=== PATIENT | female | born 1945 | race Hispanic/Latino ===

== ENCOUNTER → 2017-06-01 | Outpatient (CLI) | payer MEDICARE ==
[~2017-06-01] MED LIST: ACETAMINOPHEN-1 EAC3; BROMFED DM COU118 ML; CIPROFLOXACIN
--- NOTE | 2017-06-03 16:00 | Diagnostic Imaging Report ---
#[id number] - MGSCRBIL #BILATERAL DIGITAL SCREENING MAMMOGRAM WITH CAD: 06/01/2017 CLINICAL: Routine screening. Comparison is made to exams dated: 05/21/2016 mammogram and 05/19/2015 mammogram - [facility]. Current study contains 4 films. The tissue of both breasts is heterogeneously dense. This may lower the sensitivity of mammography. Current study was also evaluated with a Computer Aided Detection (CAD) system. There are benign calcifications in both breasts. No significant masses, calcifications, or other findings are seen in either breast. There has been no significant interval change. IMPRESSION: BENIGN There is no mammographic evidence of malignancy. A 1 year screening mammogram is recommended. The patient will be notified by letter of the results. Taras boyle/bernice:06/03/2017 13:10:19 [employer]: Shima ALDANA(R)(M), [facility] letter sent: Compared to Prior B9 Mammogram BI-RADS: 2 Benign
== END ==
LOC: MAMMO 13:07
PROVIDERS: ATTEND Internal Medicine
DX: Z12.31 Encounter for screening mammogram for malignant neoplasm of breast (principal)
CPT/HCPCS: 77067

== ENCOUNTER → 2017-10-21 | Outpatient (CLI) | payer MEDICARE | LOC: RAD 07:59 | PROVIDERS: ATTEND Internal Medicine | DX: M47.816 Spondylosis without myelopathy or radiculopathy, lumbar region (principal) | CPT/HCPCS: 72110; 72220 ==

== ENCOUNTER → 2017-11-29 | Outpatient (CLI) | payer MEDICARE ==
--- NOTE | 2017-11-30 07:32 | Diagnostic Imaging Report ---
ADDENDUM #1 Grammatical correction to the impression: 1. Degenerative changes from L1-L2 through L5-S1 with mild canal stenosis and probable impingement of the descending left L4 nerve root by a left subarticular disc extrusion with inferior migration at L3-L4. 2. Moderate bilateral neural foraminal narrowing at L3-L4 and moderate left foraminal narrowing at L5-S1. Signed by: Dr. Nelsy Flores M.D. on 11/30/2017 12:53 PM ORIGINAL REPORT Examination: MRI SPINE LUMBAR WITHOUT CONTRAST History: Low back pain with radiation to the left leg. Left lumbar radiculopathy. Comparison studies: Lumbar spine x-ray performed October 21, 2017. Technique: Sagittal, coronal and axial T2 , sagittal T1 and STIR; axial spin density oblique. Findings: Number of lumbar vertebral bodies: Five. Alignment: Normal lordosis. No scoliosis. Soft tissues: No T2 hyperintense inflammatory changes. Posterior paraspinal soft tissues and muscles: Mild fatty atrophy at L5-S1. Lower thoracic cord: Normal in signal and morphology. The tip of the conus is at T12-L1. Cauda equina: No masses. No arachnoiditis. Vertebrae: No fractures, infection or neoplasm. Degenerative changes: L1-L2: Mild diffuse disc bulge results in mild left neural foraminal narrowing. No right foraminal or canal stenosis. L2-L3: Asymmetric to right disc bulge and mild bilateral facet arthropathy result in mild right neural foraminal narrowing. No left foraminal or canal stenosis. L3-L4: Left subarticular disc extrusion with inferior migration to the superior endplate of L4 results in mild canal stenosis and probable impingement of the descending left L4 nerve root. Mild diffuse disc bulge results in moderate bilateral neural foraminal narrowing. L4-L5: Small central disc protrusion with associated annular fissure. Mild diffuse bulge and mild bilateral facet arthropathy result in mild right neural foraminal narrowing. No left foraminal or canal stenosis. L5-S1: Mild diffuse disc bulge and mild bilateral facet arthropathy result in mild right and moderate left neural foraminal narrowing. No canal stenosis. Moderate bilateral facet joint effusions without periarticular edema. IMPRESSION: 1. Degenerative changes melena 2 through L5-S1 with mild canal stenosis and probable impingement of the descending left L4 nerve root by a left subarticular disc extrusion with inferior migration at L3-L4. 2. Moderate bilateral neural foraminal narrowing at L3-L4 and moderate left foraminal narrowing at L5-S1. Signed by: Dr. Nelsy Flores M.D. on 11/30/2017 7:29 AM
--- NOTE | 2017-11-30 10:45 | Diagnostic Imaging Report ---
TECHNIQUE: Magnetic resonance imaging of the sacrum was performed WITHOUT injected contrast using standard departmental protocols. HISTORY: Spondylosis, sciatica COMPARISON: None. FINDINGS: Bone and bone marrow: No fracture. No edema. No osteonecrosis. Sacroiliac joint: Mild sacroiliac degenerative arthrosis. No sacroiliitis. Soft tissues: The exited sacral nerve roots and proximal sciatic nerve unremarkable. IMPRESSION: Mild sacroiliac degenerative arthrosis. Signed by: Dr. Butch Turcios M.D. on 11/30/2017 10:41 AM
== END ==
LOC: MRI 15:51
PROVIDERS: ATTEND Internal Medicine
DX: M54.32 Sciatica, left side (principal); M47.816 Spondylosis without myelopathy or radiculopathy, lumbar region
CPT/HCPCS: 72148; 72195

== ENCOUNTER → 2018-04-11 | Outpatient (CLI) | payer MEDICARE ==
--- NOTE | 2018-04-11 14:55 | Diagnostic Imaging Report ---
LEFT HIP - 2 Images HISTORY: Pain COMPARISON: None available. FINDINGS: Bones: Some of the osseous structures are partially obscured by stool and overlying bowel gas. No acute displaced fracture. No aggressive osseous lesion. A 6 mm calcific density projects at the parasymphyseal region of the left pubic bone, likely a small bone island or superimposed soft tissue calcification. Joints: Mild degenerative changes of the femoroacetabular joint. Soft tissues: Otherwise, unremarkable. IMPRESSION: 1. No acute radiographic abnormality. 2. Mild osteoarthrosis. Signed by: Dr. Rich Pruitt D.O., M.M.M. on 04/11/2018 2:52 PM
== END ==
LOC: RAD 12:12
PROVIDERS: ATTEND Anesthesiology Pain Medicine
DX: M25.552 Pain in left hip (principal)

== ENCOUNTER → 2018-05-11 | Outpatient (CLI) | payer MEDICARE | LOC: MAMMO 14:58 | PROVIDERS: ATTEND Internal Medicine | DX: Z12.31 Encounter for screening mammogram for malignant neoplasm of breast (principal) | CPT/HCPCS: 77067 ==

== ENCOUNTER → 2018-10-11 | Outpatient (CLI) | payer MEDICARE ==
--- NOTE | 2018-10-11 10:42 | Diagnostic Imaging Report ---
EXAM: CERVICAL SPINE 4 OR 5 VIEWS DATE: 10/11/2018 9:46 AM INDICATION: Cervical spondylosis COMPARISON: None FINDINGS: AP, bilateral oblique, lateral, and open-mouth view of the cervical spine were obtained. The cervical spine is visualized through the top of T1. There is no evidence for acute fracture or dislocation. Cervical spinal alignment is within normal limits. Vertebral body heights are maintained. No focal lytic or blastic abnormality is identified. The dens as well as lateral masses appear unremarkable. There are multilevel degenerative changes of the cervical spine most prominent at C5-C6 and C6-C7 where there is intervertebral disc space narrowing. The prevertebral soft tissues are unremarkable. The lung apices are clear. IMPRESSION: No acute radiographic abnormality identified within the cervical spine. Multilevel degenerative changes as above. Signed by: Dr. Benjamín Mcginnis MD on 10/11/2018 10:38 AM
== END ==
LOC: RAD 09:35
PROVIDERS: ATTEND Internal Medicine
DX: M47.22 Other spondylosis with radiculopathy, cervical region (principal)
CPT/HCPCS: 72050

== ENCOUNTER → 2019-07-26 | Outpatient (CLI) | payer MEDICARE | LOC: MAMMO 14:33 | PROVIDERS: ATTEND Internal Medicine | DX: Z12.31 Encounter for screening mammogram for malignant neoplasm of breast (principal) | CPT/HCPCS: 77067 ==

== ENCOUNTER → 2019-08-03 | Outpatient (CLI) | payer MEDICARE ==
--- NOTE | 2019-08-03 08:35 | Diagnostic Imaging Report ---
CT BRAIN WO HISTORY: Headache COMPARISON: None. TECHNIQUE: Noncontrast axial scans were obtained from skull base to the vertex. Coronal and sagittal reconstructions obtained from the axial data. One or more of the following dose reduction techniques were used: Automated exposure control, adjustment of the mA and/or kV according to patient size, and/or utilization of iterative reconstruction technique. DISCUSSION: Scalp/Skull: Unremarkable. Brain sulci: Appropriate for patient's age. Ventricles: Normal in size and configuration. No hydrocephalus. Extra-axial spaces: No masses or fluid collections. Mild carotid siphon calcifications. Parenchyma: No abnormal densities. No mass, hemorrhage, or large vascular territory acute infarct. Dural sinuses: No abnormal densities. Sellar/Suprasellar region: Intact. Skull base: Intact. Incidental findings: None. IMPRESSION: No acute intracranial abnormalities. Signed by: Dr. Johan Suero M.D. on 08/03/2019 8:31 AM
== END ==
LOC: CT 07:02
PROVIDERS: ATTEND Internal Medicine
DX: G44.309 Post-traumatic headache, unspecified, not intractable (principal)
CPT/HCPCS: 70450

== ENCOUNTER → 2020-07-08 | Outpatient (CLI) | payer OTHER | LOC: US 09:07 | PROVIDERS: ATTEND Internal Medicine | DX: R74.01 Elevation of levels of liver transaminase levels (principal) | CPT/HCPCS: 76705 ==

== ENCOUNTER → 2021-06-25 | Outpatient (CLI) | payer MEDICARE | LOC: US 08:04 | PROVIDERS: ATTEND Family Medicine | DX: K76.0 Fatty (change of) liver, not elsewhere classified (principal); R74.01 Elevation of levels of liver transaminase levels | CPT/HCPCS: 76705 ==

== ENCOUNTER → 2021-09-25 | Outpatient (CLI) | payer MEDICARE | LOC: RAD 14:45 | PROVIDERS: ATTEND Family Medicine | DX: M54.2 Cervicalgia (principal); R51.9 Headache, unspecified | CPT/HCPCS: 72040 ==